=== PATIENT | female | born 1980 | race Caucasian/White ===

== ENCOUNTER 2016-09-03 22:13 | Emergency (ER) | payer OTHER ==
[~2016-09-03] VITALS: Ht 165.1 cm; Wt 55.8 kg
[~2016-09-03 22:13] MED LIST: DEPO-PROVE150 MG/1 M IM; IBUPROFEN800 M1 PO; TYLENOL WITH C1 EACH PO
--- NOTE | 2016-09-03 23:40 | ED INFLUENZA/URI COMPLAINT ---
History of Present Illness General Chief Complaint: Nausea, Vomiting, Diarrhea Stated Complaint: N/V/D Source: patient Exam Limitations: no limitations Vital Signs & Intake/Output Vital Signs & Intake/Output Vital Signs Date Time Temp Pulse Resp B/P Pulse O2 O2 Flow FiO2 Ox Delivery Rate 09/03 2217 97.3 124 20 142/98 97 Room Air ED Intake and Output 09/04 0000 09/03 1200 Intake Total Output Total Balance Patient 123 lb Weight Allergies Coded Allergies: NO KNOWN ALLERGIES (09/03/16) Reconcile Medications Ibuprofen 800 MG TABLET 1 TAB PO PRN PAIN (Reported) Ibuprofen 800 MG TABLET 1 TAB PO 4 TIMES/DAY PRN PAIN Medroxyprogesterone Acetate (Depo-Provera) 150 MG/1 ML VIAL 150 mg IM Q3M CONTROL (Reported) Metoclopramide HCl (Reglan) 10 MG TABLET 1 TAB PO 4 TIMES/DAY PRN NAUSEA 30 minutes before meals and bedtime Tylenol With Codeine (Tylenol With Codeine #3 Tablet) 1 EACH TABLET 1-2 TAB PO BIDP PRN PAIN TWENTY...[id number] Triage Note: TRIAGE: PT SIGNS INTO BE SEEN FOR 1 EPISODE OF NAUSEA/VOMITING AFTER WATCHING HER BOYFRIEND VOMIT IN THE WAITING ROOM. STATES THOUGHT SHE HAD HEARTBURN A LITTLE EARLIER AND THOUGHT THAT WAS ALL IT WAS. STATES HER SON WAS SICK WITH THE GI BUG THE OTHER DAY. Triage Nurses Notes Reviewed? yes : No Patient currently breastfeeds: No HPI: This patient is a 36-year-old female who presented to the emergency department today for evaluation of vomiting. The patient accompanied her significant other here to the emergency department and when she saw him vomiting here in the waiting room, she had an episode of vomiting and nausea. She denied any current nausea. She denied any fevers or chills. No chest pain or difficulty breathing. She denied any urinary symptoms or diarrhea. Her son is currently sick with a GI bug. (RONNY BOJORQUEZ,COLBY) Past History Travel History Traveled to [place] past 21 day No Medical History Any Pertinent Medical History? see below for history Neurological: NONE EENT: NONE Cardiovascular: NONE Respiratory: NONE Gastrointestinal: NONE Hepatic: hepatitis C Renal: NONE Musculoskeletal: NONE Psychiatric: NONE Endocrine: NONE Blood Disorders: NONE Cancer(s): NONE SENIOR PENSIONS ADMINISTRATOR/Reproductive: NONE Tetanus Vaccine: Surgical History Surgical History: N Psychosocial History What is your primary language Slovak Tobacco Use: Current Daily Use Daily Tobacco Use Amount/Type: => 5 Cigarettes daily ETOH Use: denies use Illicit Drug Use: denies illicit drug use Family History Hx Contributory? No (COLBY JEFFERSON PA-C) Review of Systems Review of Systems Constitutional: Reports: no symptoms. EENTM: Reports: no symptoms. Respiratory: Reports: no symptoms. Cardiovascular: Reports: no symptoms. GI: Reports: see HPI. Genitourinary: Reports: no symptoms. Musculoskeletal: Reports: no symptoms. Skin: Reports: no symptoms. Neurological/Psychological: Reports: no symptoms. All Other Systems: Reviewed and Negative (COLBY JEFFERSON PA-C) Physical Exam Physical Exam Ears, Nose, Throat: normal ENT inspection, moist mucous membrane, hearing grossly normal Comments: Well-developed well-nourished person in no acute distress HEENT: Normal EENT exam, head normocephalic, moist mucous membranes Pupils equally round and reactive to light. Neck: Supple Back: Normal gait Respiratory: No respiratory distress. Speaking in full sentences Extremity: Normal and equal pulses Neuro: Alert oriented x3, motor sensory normal, cranial nerves II through XII grossly intact. Skin: No appreciable rash on exposed skin, skin is warm and dry. Psych: Mood and affect is normal Core Measures Severe Sepsis Present: No Septic Shock Present: No (COLBY JEFFERSON PA-C) Progress Differential Diagnosis: influenza, otitis, pneumonia, pharyngitis, sinusitis Plan of Care: Orders Procedure Date/time Status RAPID VIRAL INFLUENZA A 09/035 Active Laboratory Tests 09/03/16 2325: Sodium Cancelled, Potassium Cancelled, Chloride Cancelled, Carbon Dioxide Cancelled, Anion Gap Cancelled, BUN Cancelled, Creatinine Cancelled, BUN/ Creatinine Ratio Cancelled, Glucose Cancelled, Calcium Cancelled, Total Bilirubin Cancelled, AST Cancelled, ALT Cancelled, Alkaline Phosphatase Cancelled, Total Protein Cancelled, Albumin Cancelled, Globulin Cancelled, Albumin/Globulin Ratio Cancelled, CBC w Diff Cancelled, WBC Cancelled, RBC Cancelled, Hgb Cancelled, Hct Cancelled, MCV Cancelled, MCH Cancelled, RDW Cancelled, Plt Count Cancelled, MPV Cancelled, PUBS MCHC Cancelled Initial ED EKG: none (COLBY JEFFERSON PA-C) Departure Departure Disposition: HOME OR SELF CARE Condition: Stable Clinical Impression Primary Impression: Viral syndrome Referrals: KELLY WILKINSON,JEFERSON Brown (PCP/Family) Additional Instructions: CHE REGLAN PRESCRIBED. OVER THE COUNTER TYLENOL OR MOTRIN FOR PAIN. REST AND STAY HYDRATED. FOLLOW-UP WITH YOUR PRIMARY CARE PHYSICIAN. RETURN FOR ANY WORSENING SYMPTOMS OR CONCERNS. Departure Forms: Customer Survey General Discharge Information Prescriptions: Current Visit Scripts Metoclopramide HCl (Reglan) 1 TAB PO 4 TIMES/DAY PRN NAUSEA #12 TAB 30 minutes before meals and bedtime (RONNY BOJORQUEZ,COLBY) PA/BINDER LOCKSTITCH Co-Sign Statement Statement: ED Attending supervision documentation- [] I saw and evaluated the patient. I have also reviewed all the pertinent lab results and diagnostic results. I agree with the findings and the plan of care as documented in the PA's/BINDER LOCKSTITCH's documentation. [X] I have reviewed the ED Record and agree with the PA's/BINDER LOCKSTITCH's documentation. [] Additions or exceptions (if any) to the PAs/BINDER LOCKSTITCH's note and plan are summarized below: [] (MEG WILKINSON,NARAYAN Espinoza)
[2016-09-04] MEDS ORDERED: REGLAN10 M1 PO (00:13)
[2016-09-04 01:00] VITALS: BP 138/89
== END 2016-09-04 01:17 ==
LOC: ERH 22:13
DX: B34.9 Viral infection, unspecified (principal)
CPT/HCPCS: 87804; 87804-59; 96374; J2765